=== PATIENT | female | born 1960 | race Caucasian/White ===

== ENCOUNTER → 2018-02-14 | Outpatient (CLI) | payer OTHER ==
[~2018-02-14] MED LIST: AUGMENTIN 875875 MG PO; CLONIDINE HCL0.2 MG PO; CREON DR 12,001 EACH PO; DIGOX250 MCG PO; DILTIAZEM 24HR180 MG PO; Diltiazem180 MG PO; EFFEXOR XR75 M1 PO; ELIQUIS5 M1 PO; FENOFIBRATE160 MG PO; GLUCOPHAGE1000 MG PO; IBU800 MG PO; KLOR-CON M2020 ME1 PO; LASIX40 MG PO; NEURONTIN600 MG PO; ONCE-DAILY WEL150 MG PO; PHENERGAN25 M3 PO; PRAVACHOL20 MG PO; PRILOSEC20 M1 PO; WELLBUTRIN XL150 MG PO
== END | disposition home or self-care (01) ==
LOC: RAD 15:40
DX: M25.551 Pain in right hip (principal); M25.552 Pain in left hip

== ENCOUNTER 2018-02-25 15:17 | Inpatient (IN) | payer OTHER ==
[~2018-02-25] VITALS: Ht 167.6 cm; Wt 131.5 kg
--- NOTE | ~2018-02-25 | DS ---
[place], [place] DISCHARGE SUMMARY NAME: NEIL CHAVIRA [facility] #: [id number] UNIT #: [id number] ROOM: 520 DOCTOR: MCKENZIE BAY MD BIRTHDATE: [birth year] DOS: 02/28/2018 DISCHARGE DIAGNOSES: 1. Cardiac stress test positive for anterior wall ischemia. The patient going for heart catheterization to [facility] in [place] with Dr. León. 2. Urinary tract infection with Escherichia coli extended-spectrum beta-lactamases, being treated with Augmentin. 3. Morbid obesity. 4. Gastroesophageal reflux disease and esophagitis. 5. Type 2 diabetes mellitus. 6. Chronic atrial fibrillation. The patient's apixaban held back for heart catheterization. 7. Bilateral hip pains and osteoarthritis. 9. Chronic obstructive pulmonary disease. 10. Mixed hyperlipidemia. 11. Major depression, recurrent. 12. Type 2 diabetes mellitus. Metformin held back for heart catheterization. HOSPITAL COURSE: The patient presented to the Emergency Department with: 1. Recurrent chest pressure, tightness symptoms and nausea and diaphoresis and substernal chest pain for about a week, which resolved with sublingual nitroglycerins. The patient was ruled out for acute UT with serial cardiac enzymes and then taken for a cardiac stress test, which showed significant anterior wall reversible ischemia. The patient has been scheduled to go to [facility] in [place] tomorrow for a heart catheterization for further evaluation and management. The patient's metformin and apixaban has been held back for the procedure and needs to be restarted. 2. The patient with urinary tract infection with ESBL being treated with Augmentin, which needs to be continued 875 mg twice a day to complete a week of treatment. 3. Bilateral hip pains for which the patient was requesting pain medications and she was started on hydrocodone p.r.n. 4. Benign essential hypertension, treated and controlled. The patient remains on Cardizem and clonidine. 5. Gastroesophageal reflux disease and esophagitis, asymptomatic with omeprazole, which was continued. 6. Type 2 diabetes mellitus. The patient on metformin, which has been held back for the heart catheterization. The patient remains on a no concentrated sweet diet. 7. Morbid obesity. The patient worked with [employer]. 8. Chronic atrial fibrillation with controlled heart rates. The patient remains off of apixaban for now, needs to be restarted later. LABORATORY DATA: Nuclear stress results as mentioned above. Echocardiogram showing normal left ventricular ejection fraction. Urine cultures growing E. coli ESBL producing organism, sensitive to Augmentin. Cardiac enzymes were negative. DISCHARGE MANAGEMENT: Metformin on hold, apixaban on hold, aspirin 81 mg a day, [place], [place] DISCHARGE SUMMARY NAME: [id number] UN[facility] #: [id number] ROOM: [facility] DOCTOR: MCKENZIE BAY MD BIRTHDATE: [birth year] metoprolol 25 mg b.i.d., Lipitor 40 mg a day, digoxin 250 mcg daily, venlafaxine 75 mg daily, furosemide 40 mg a day, clonidine 0.2 mg daily, bupropion XL 150 mg daily, pancreatic enzymes 12,000 units b.i.d. with meals, omeprazole 20 mg a day, gabapentin 600 mg every 8 hours, promethazine 25 mg daily as needed for nausea, vomiting. Augmentin 875 mg b.i.d. for 6 more days. MCKENZIE BAY MD CM:RUFINA 25 46 MCKENZIE BAY MD 02/28/[id number] interface
--- NOTE | ~2018-02-25 | EKG ---
[place], [place] ELECTROCARDIOGRAM REPORT NAME: NEIL CHAVIRA UNIT #: [id number] ROOM: 520 DOCTOR: HEATHER DRAFT REPORT BIRTHDATE: [address] [facility] Test Date: 2018-02-25 Test Time: 17:42:40 Pat Name: NEIL CHAVIRA Department: Room: 520 Gender: F Advanced Practice Registered Nurse: Cait Schofield : 1960 Requested By: ROMERO RILEY Order Number: [id number] Reading MD: Victoriano León MD Measurements Intervals [place] Rate: 82 P: 30 NC: 182 QRS: 7 QRSD: 94 T: -20 QT: 359 QTc: 420 Interpretive Statements Sinus rhythm Probable left atrial enlargement Probable left ventricular hypertrophy Borderline T abnormalities, diffuse leads Electronically Signed On 02-26-2018 16:08:05 PST by Victoriano León MD CM:EKGRPT:ELECTROCARDIOGRAM REPORT [id number] ROMERO URRUTIA DRAFT REPORT ROMERO RILEY DO
--- NOTE | ~2018-02-25 | PR ---
[place], [place] PROGRESS NOTE [id number] UNIT #: [id number] ROOM: 520 DOCTOR: MCKENZIE BAY MD BIRTHDATE: [birth year] DOS: 02/27/2018 SUBJECTIVE: The patient is feeling better. Had a stress test this morning and 1 more episode of chest pains, but negative cardiac enzymes. PHYSICAL EXAMINATION: GENERAL APPEARANCE: The patient is alert and oriented x 3, in no visible distress. Obesity. VITAL SIGNS: Blood pressure 118/74, heart rate 71 beats per minute, breathing 20 times per minute, temperature 98 degrees Fahrenheit. HEENT AND NECK: Exam within normal limits. CARDIOVASCULAR SYSTEM: Heart rate is regular in rate and rhythm. S1 and S2 normally audible. LUNGS: Clear to auscultation. ABDOMEN: Soft, nontender. No obvious organomegaly. Bowel sounds are present. EXTREMITIES: Without significant cyanosis or edema. IMPRESSION: 1. The patient's chest pains from uncertain etiology. The patient is undergoing cardiac stress testing today. 2. Urinary tract infection with Escherichia coli extended-spectrum beta-lactamase, to be treated with Augmentin. 3. Morbid obesity. The patient working with Dietary. 4. Gastroesophageal reflux disease and esophagitis, asymptomatic with omeprazole. 5. Type 2 diabetes mellitus, being treated with metformin. Blood sugars being monitored. 6. Chronic atrial fibrillation, heart rate is controlled and the patient anticoagulated with Xarelto. 7. Bilateral hip pains are being treated with hydrocodone. The patient already has been x-rayed by her PCP, Dr. Mendez Collins as an outpatient. MCKENZIE BAY MD CM:PNTRANS [id number] MCKENZIE BAY MD 02/27/18 2316 interface
--- NOTE | ~2018-02-25 | EKG ---
[place], [place] ELECTROCARDIOGRAM REPORT NAME: NEIL CHAVIRA UNIT #: [id number] ROOM: 520 DOCTOR: HEATHER DRAFT REPORT BIRTHDATE: [birth year] [facility] Test Date: 2018-02-25 Test Time: 21:03:20 Pat Name: NEIL CHAVIRA Department: Room: 520 Gender: F Golf Course Keeper: Ayden Villarreal : 1960 Requested By: ROMERO RILEY Order Number: [id number] Reading MD: Victoriano León MD Measurements Intervals [place] Rate: 77 P: 47 [place]: 186 QRS: 34 QRSD: 91 T: 18 QT: 362 QTc: 410 Interpretive Statements Sinus rhythm Probable left atrial enlargement Abnormal R-wave progression, late transition Borderline T abnormalities, anterior leads Electronically Signed On 02-26-2018 16:10:02 PST by Victoriano León MD CM:EKGRPT:ELECTROCARDIOGRAM REPORT 02 1610 ROMERO URRUTIA DRAFT REPORT ROMERO RILEY DO
--- NOTE | ~2018-02-25 | EKG ---
[place], [place] ELECTROCARDIOGRAM REPORT NAME: NEIL CHAVIRA UNIT #: [id number] ROOM: 520 DOCTOR: HEATHER DRAFT REPORT BIRTHDATE: [birth year] [facility] Test Date: 2018-02-25 Test Time: 15:18:13 Pat Name: NEIL CHAVIRA Department: Room: 520 Gender: F Development Analyst: Cait Schofield : 1960 Requested By: ROMERO RILEY Order Number: [id number] Reading MD: Victoriano León MD Measurements Intervals [place] Rate: 92 P: 44 [place]: 177 QRS: 21 QRSD: 86 T: -6 QT: 350 QTc: 433 Interpretive Statements Sinus rhythm Left atrial enlargement Borderline T wave abnormalities Electronically Signed On 02-26-2018 16:06:01 PST by Victoriano León MD CM:EKGRPT:ELECTROCARDIOGRAM REPORT [id number] 1606 ROMERO URRUTIA DRAFT REPORT ROMERO RILEY DO
--- NOTE | ~2018-02-25 | WRIGHTHP ---
[place], [place] PATIENT HISTORY AND PHYSICAL EXAM NAME: NEIL CHAVIRA [facility] #: [id number] UNIT #: [id number] ROOM: 520 DOCTOR: MCKENZIE BAY MD BIRTHDATE: [birth year] DOS: 02/25/2018 HISTORY OF PRESENT ILLNESS: The patient is a 58-year-old female with a past medical history of: 1. Morbid obesity. 2. Chronic atrial fibrillation. 3. COPD. 4. Benign essential hypertension. 5. Mixed hyperlipidemia. 6. Major depression, recurrent. 7. Type 2 diabetes mellitus. 8. GERD and esophagitis. The patient presented to the Emergency Department with recurrent chest pressure and tightness symptoms without nausea or diaphoresis. The patient also had substernal chest pain for about 1 week, resolved with nitroglycerin. The patient was sent over to the Emergency Department by her primary care physician, Dr. Mendez Collins. After admission, the patient had mild symptoms of chest pain this morning, which resolved, but she is complaining of significant pains bilaterally in her hips, which are being evaluated by Dr. Mendez Collins with an x-ray. The patient is requesting pain medication. REVIEW OF SYSTEMS: CARDIOVASCULAR SYSTEM: Recurrent chest pains. GASTROINTESTINAL: No nausea, vomiting, diarrhea, constipation. RESPIRATORY: No shortness of breath or wheezing. HOME MEDICATIONS: The patient on gabapentin, apixaban, omeprazole, metformin, bupropion, clonidine, diltiazem, furosemide, Effexor, digoxin, Lipitor. ALLERGIES: No known drug allergies, but allergic to LATEX. FAMILY HISTORY: Noncontributory. PHYSICAL EXAMINATION: GENERAL: Alert, oriented x 3, morbidly obese with BMI of 46.8. HEENT AND NECK: Extraocular movements are intact. Sclerae are anicteric. Oral mucosa is moist and clean. No obvious facial weakness. Neck is supple without any lymphadenopathy. No thyromegaly. No JVD. No carotid arterial bruits. LUNGS: Clear to auscultation. No wheezing. No rhonchi. CARDIOVASCULAR SYSTEM: Heart rate is regular in rate and rhythm. S1 and S2 normally audible. No significant murmur or any other abnormal cardiac sounds. ABDOMEN: Soft, nontender. No obvious organomegaly. Bowel sounds are present. No obvious herniation. EXTREMITIES: Without significant cyanosis or edema. Warm to touch. CENTRAL NERVOUS SYSTEM: Alert and oriented x 3. Cranial nerves II-XII are intact. Speech is normal. The patient is able to move all extremities. Normal muscle strength. Deep tendon reflexes are equal on both sides. Plantars were downgoing. [place], [place] PATIENT HISTORY AND PHYSICAL EXAM NAME: NEIL CHAVIRA UNIT #: [id number] ROOM: [facility] DOCTOR: MCKENZIE BAY MD BIRTHDATE: [birth year] LABORATORY DATA: Cardiac enzymes were negative. Urine culture is growing heavy gram-negative bacilli, 75,000 colonies. Normal serum electrolytes. Blood sugar 161. Chest x-ray without acute abnormality. Normal CBC. IMPRESSION AND PLAN: 1. The patient with chest pains from uncertain etiology b.i.d., but the patient is a high risk for coronary artery disease. The patient's cardiac enzymes have been negative and she has been scheduled for a cardiac stress test in the morning with the lawn caretaker. 2. Bilateral hip pains, which are bothering her significantly and I will give her hydrocodone 3 times a day as needed for pain control because Tylenol and Advil are not helping. 3. Benign essential hypertension. The patient continued on Cardizem and clonidine. Blood pressure is being monitored and is staying normal. 4. Gastroesophageal reflux disease and esophagitis, treated with omeprazole. The patient is without heartburns. 5. Type 2 diabetes mellitus. The patient is on metformin. Blood sugars are being monitored and she was kept on a no concentrated sweet diet. 6. Chronic atrial fibrillation with controlled heart rates. The patient remains on digoxin and anticoagulated with Xarelto. MCKENZIE BAY MD CM:HISPHYS:PATIENT HISTORY AND PHYSICAL EXAMINATION 22 46 MCKENZIE BAY MD 02/26/181947 interface
--- NOTE | ~2018-02-25 | PR ---
[place], [place] PROGRESS NOTE NAME: NEIL CHAVIRA UNIT #: [id number] ROOM: 520 DOCTOR: CHECO COOMBS,BETHELROMMEL BIRTHDATE: [birth year] DOS: 02/28/2018 REASON FOR VISIT: Chest pain, abnormal stress test. HISTORY OF PRESENT ILLNESS: The patient is feeling better. Denies any chest pain or shortness of breath. No palpitation, no dizziness, no PND, no orthopnea. REVIEW OF SYSTEMS: Review of the 10 systems negative except as mentioned above. RHYTHM STRIPS: The patient in sinus rhythm. PHYSICAL EXAMINATION: VITAL SIGNS: Blood pressure 122/68, pulse 78, respiratory rate was 20. Weight 131.4 kilos. BMI 46.8. GENERAL: Alert, comfortable, in no acute distress. HEAD AND NECK: Pupils round, equal. Tongue was moist and pharynx was clear. NECK: Supple, no distended neck veins, no carotid bruit. CHEST: Nontender. LUNGS: A few scattered rhonchi. Good air entry bilaterally. HEART: Regular rhythm, no S3, no palpable thrills. ABDOMEN: Morbidly obese, nontender. Bowel sounds normal. EXTREMITIES: Showed trace edema. Distal pulses palpable. SKIN: Warm and dry. No cyanosis, no clubbing. RECTAL: Deferred. GENITOURINARY: Deferred. MEDICATIONS, LABS AND ALLERGIES: Reviewed. IMPRESSION: 1. Chest pain, possible angina, myocardial infarction ruled out. 2. Abnormal stress test with inferior and anterior ____ ischemia. 3. Hypertension. 4. Diabetes type 2. 5. Paroxysmal atrial fibrillation. 6. History of cerebrovascular accident. 7. Morbid obesity. RECOMMENDATIONS: 1. She is currently pain free. 2. She was recommended cardiac catheterization due to recurrent chest pains, abnormal stress test and multiple coronary artery disease risk factors. Risks, benefits, and alternatives of cardiac catheterization discussed with the patient and agreed to proceed with cardiac catheterization, angioplasty stent and possible bypass surgery if needed. Had a cardiac catheterization indication of 17 with AUC score of 9. We will start aspirin 81 mg and hold her Eliquis for cardiac catheterization. Start beta chris ____ and discontinue her Cardizem. Continue her statins and Nitro-Patch. Hold her metformin for cardiac catheterization. [place], [place] PROGRESS NOTE NAME: NEIL CHAVIRA UNIT #: [id number] ROOM: 520 DOCTOR: CHECO COOMBS,JUDIE BIRTHDATE: [birth year] She will be transferred to [facility] in [place] ____ for cardiac catheterization and further recommendation based on cardiac catheterization. The patient has lost significant weight in the last few years and the patient encouraged to continue to lose weight. Resume her Eliquis after her cardiac catheterization. There is no family at bedside at the time of examination. JUDIE KESSLER MD CM:LUCIE [id number] JUDIE KESSLER MD 03/01/18 0256 interface
[2018-02-25 15:23] VITALS: BP 151/101
[2018-02-25 15:33] LABS: BASO # 0.1 10*3/uL (0.0-0.1); BASO % 0.7 % (0.0-1.0); EOS # 0.3 10*3/uL (0.0-0.4); EOS % 3.2 % (1.0-4.0); LYMPH # 1.8 10*3/uL (1.3-4.4); LYMPH % 21.8 % (27.0-41.0); MEAN CELL VOLUME 91.7 fl (81.0-99.0); MEAN CORPUSCULAR HGB 29.1 pg (27.0-31.0); MEAN CORPUSCULAR HGB CONC 31.7 g/dl (33.0-37.0); MEAN PLATELET VOLUME 10.2 fl (9.6-12.3); MONO # 0.5 10*3/uL (0.1-1.0); MONO % 6.3 % (3.0-9.0); NEUT # 5.5 10*3/uL (2.3-7.9); NEUT % 67.8 % (47.0-73.0); PLATELET COUNT AUTOMATED 273 10*3/uL (130-400); RED BLOOD COUNT 4.47 10*6/uL (4.10-5.10); RED CELL DISTRI WIDTH 13.1 % (0-14.5); WHITE BLOOD COUNT 8.1 10*3/uL (4.8-10.8)
[2018-02-25 15:42] LABS: ACT PARTIAL THROMBO TIME 25.5 SECONDS (20.8-31.5); INTERNATIONAL NORM RATIO 1.1 (2.0-3.5)
[2018-02-25 15:51] LABS: ALBUMIN 3.7 gm/dl (3.1-4.5); ALKALINE PHOSPHATASE 74 U/L (45-117); BUN 16 mg/dl (7-24); CHLORIDE 102 mmol/L (98-107); CREATININE 0.94 mg/dL (0.55-1.02); POTASSIUM 4.2 mmol/L (3.5-5.1); SGOT/AST 32 IU/L (3-35); SGPT/ALT 35 U/L (12-78); SODIUM 138 mmol/L (136-145); TOTAL PROTEIN 8.4 gm/dL (6.4-8.2)
[2018-02-25 15:54] LABS: TROPONIN I < 0.015 ng/ml (<0.045)
[2018-02-25 15:58] LABS: BILIRUBIN NEGATIVE (NEGATIVE); BLOOD NEGATIVE (NEGATIVE); CLARITY CLEAR (CLEAR); COLOR YELLOW (YELLOW); GLUCOSE NEGATIVE (NEGATIVE); KETONE NEGATIVE (NEGATIVE); LEUKO ESTERASE NEGATIVE (NEGATIVE); NITRITE NEGATIVE (NEGATIVE); PH 6.5 (5.0-9.0); SPECIFIC GRAVITY <= 1.005 (1.005-1.030); UROBILINOGEN 0.2 E.U./dl (0.2-1.0)
[2018-02-25 16:01] VITALS: BP 119/85
[2018-02-25 16:04] VITALS: BP 107/64
[2018-02-25 16:07] LABS: BACTERIA 2+; RBC 0-2 rbc/hpf (0-2)
[2018-02-25] MEDS ORDERED: ONCE-DAILY WEL150 MG PO (16:24)
[2018-02-25] MEDS ORDERED: PHENERGAN25 M3 PO (16:27)
[2018-02-25] MEDS ORDERED: IBU800 MG PO (16:28)
[2018-02-25] MEDS ORDERED: EFFEXOR XR75 M1 PO (16:29)
[2018-02-25] MEDS ORDERED: NEURONTIN600 MG PO (16:29)
[2018-02-25] MEDS ORDERED: DIGOX250 MCG PO (16:30)
[2018-02-25] MEDS ORDERED: LASIX40 MG PO (16:30)
[2018-02-25] MEDS ORDERED: GLUCOPHAGE1000 MG PO (16:31)
[2018-02-25] MEDS ORDERED: KLOR-CON M2020 ME1 PO (16:31)
[2018-02-25] MEDS ORDERED: PRILOSEC20 M1 PO (16:33)
[2018-02-25] MEDS ORDERED: Diltiazem180 MG PO (16:33)
[2018-02-25] MEDS ORDERED: ELIQUIS5 M1 PO (16:35)
[2018-02-25] MEDS ORDERED: WELLBUTRIN XL150 MG PO (16:36)
[2018-02-25] MEDS ORDERED: FENOFIBRATE160 MG PO (16:36)
[2018-02-25] MEDS ORDERED: DILTIAZEM 24HR180 MG PO (16:38)
[2018-02-25] MEDS ORDERED: CREON DR 12,001 EACH PO (16:39)
[2018-02-25] MEDS ORDERED: PRAVACHOL20 MG PO (16:39)
[2018-02-25] MEDS ORDERED: CLONIDINE HCL0.2 MG PO (16:42)
[2018-02-25 16:55] VITALS: BP 120/82
[2018-02-25 17:00] VITALS: BP 141/81
[2018-02-25 20:00] VITALS: BP 139/71
[2018-02-26] VITALS: BP 133/66
[2018-02-26 08:00] VITALS: BP 136/80
[2018-02-26 12:00] VITALS: BP 145/75
[2018-02-26 16:00] VITALS: BP 120/72
[2018-02-26 20:00] VITALS: BP 129/71
[2018-02-27] VITALS: BP 129/63; BP 145/82
[2018-02-27 08:00] VITALS: BP 118/74; BP 132/74
[2018-02-27 12:00] VITALS: BP 132/63
[2018-02-27 16:00] VITALS: BP 111/56
[2018-02-27 20:00] VITALS: BP 121/64
[2018-02-28] VITALS: BP 129/63
[2018-02-28 08:00] VITALS: BP 122/68
[2018-02-28 12:00] VITALS: BP 104/64
[2018-02-28 16:00] VITALS: BP 110/59
[2018-02-28] MEDS ORDERED: AUGMENTIN 875875 MG PO (17:15)
[2018-02-28 20:00] VITALS: BP 125/63
[2018-03-01] VITALS: BP 124/74
== END 2018-03-01 06:08 | disposition other institution (70) | DRG 690 ==
LOC: ED 15:17 → EDHOLD 16:19 → 5E 16:19
PROVIDERS: Emergency Medicine; Nurse Practitioner
PROC: 4A02XM4 Measurement of Cardiac Total Activity, External Approach (ICD-10-PCS; principal; 2018-02-27)
PROC: 3E073KZ Introduction of Other Diagnostic Substance into Coronary Artery, Percutaneous Approach (ICD-10-PCS; 2018-02-27)
DX: N39.0 Urinary tract infection, site not specified (principal); F33.9 Major depressive disorder, recurrent, unspecified; Z68.42 Body mass index [BMI] 45.0-49.9, adult; I20.9 Angina pectoris, unspecified; R07.9 Chest pain, unspecified; I10 Essential (primary) hypertension; E11.9 Type 2 diabetes mellitus without complications; I48.2 Chronic atrial fibrillation; Z79.01 Long term (current) use of anticoagulants; E78.5 Hyperlipidemia, unspecified; Z91.040 Latex allergy status; E66.01 Morbid (severe) obesity due to excess calories; J44.9 Chronic obstructive pulmonary disease, unspecified; E78.2 Mixed hyperlipidemia; K21.0 Gastro-esophageal reflux disease with esophagitis; Z79.84 Long term (current) use of oral hypoglycemic drugs; B96.20 Unspecified Escherichia coli [E. coli] as the cause of diseases classified elsewhere; M16.0 Bilateral primary osteoarthritis of hip; I25.9 Chronic ischemic heart disease, unspecified

== ENCOUNTER → 2018-03-28 | Outpatient (CLI) | payer OTHER | END | disposition home or self-care (01) | LOC: WOUNDCARE 12:11 | DX: E11.622 Type 2 diabetes mellitus with other skin ulcer (principal); L98.491 Non-pressure chronic ulcer of skin of other sites limited to breakdown of skin; E11.65 Type 2 diabetes mellitus with hyperglycemia; I48.91 Unspecified atrial fibrillation; E78.5 Hyperlipidemia, unspecified; K21.9 Gastro-esophageal reflux disease without esophagitis; M19.90 Unspecified osteoarthritis, unspecified site; E66.01 Morbid (severe) obesity due to excess calories; F32.9 Major depressive disorder, single episode, unspecified; Z68.41 Body mass index [BMI] 40.0-44.9, adult ==

== ENCOUNTER → 2018-06-06 | Outpatient (CLI) | payer OTHER ==
[~2018-06-06] MED LIST changes: +NORCO 5-325 TA1 EACH PO
== END | disposition home or self-care (01) ==
LOC: MAMMO 08:36
DX: Z12.31 Encounter for screening mammogram for malignant neoplasm of breast (principal); N83.291 Other ovarian cyst, right side

== ENCOUNTER → 2018-06-11 | Outpatient (CLI) | payer OTHER ==
[2018-06-11 17:20] LABS: ALBUMIN 3.9 gm/dl (3.1-4.5); BUN 21 mg/dl (7-24); CHLORIDE 105 mmol/L (98-107); CREATININE 0.98 mg/dL (0.55-1.02); POTASSIUM 4.5 mmol/L (3.5-5.1); SGOT/AST 23 IU/L (3-35); SGPT/ALT 29 U/L (12-78); SODIUM 138 mmol/L (136-145)
[2018-06-11 17:21] LABS: ALKALINE PHOSPHATASE 72 U/L (45-117)
== END | disposition home or self-care (01) ==
LOC: LAB 16:32
PROVIDERS: Internal Medicine Cardiovascular Disease
DX: E11.9 Type 2 diabetes mellitus without complications (principal)

== ENCOUNTER 2018-08-13 13:42 | Emergency (ER) | payer OTHER ==
[~2018-08-13] VITALS: Ht 160 cm; Wt 127.9 kg
[~2018-08-13 13:42] MED LIST changes: -NORCO 5-325 TA1 EACH PO
[2018-08-13 14:30] LABS: BILIRUBIN NEGATIVE (NEGATIVE); BLOOD NEGATIVE (NEGATIVE); CLARITY SL CLOUDY (CLEAR); COLOR YELLOW (YELLOW); GLUCOSE 3+ (NEGATIVE); KETONE NEGATIVE (NEGATIVE); LEUKO ESTERASE NEGATIVE (NEGATIVE); NITRITE NEGATIVE (NEGATIVE); PH 5.5 (5.0-9.0); UROBILINOGEN 0.2 E.U./dl (0.2-1.0)
[2018-08-13 14:42] LABS: BACTERIA 1+
[2018-08-13] MEDS ORDERED: NORCO 5-325 TA1 EACH PO (17:31)
== END 2018-08-13 17:47 | disposition home or self-care (01) ==
LOC: ED 13:42
PROVIDERS: Physician Assistant
DX: M54.5 Low back pain (principal); Z79.899 Other long term (current) drug therapy; Z91.040 Latex allergy status; X58.XXXA Exposure to other specified factors, initial encounter; Y93.01 Activity, walking, marching and hiking; Y92.89 Other specified places as the place of occurrence of the external cause; Y99.8 Other external cause status

== ENCOUNTER → 2018-09-26 | Outpatient (CLI) | payer OTHER ==
[~2018-09-26] MED LIST changes: +NORCO 5-325 TA1 EACH PO; +VISTARIL25 MG PO
== END | disposition home or self-care (01) ==
LOC: US 09-09 10:00
DX: N83.201 Unspecified ovarian cyst, right side (principal)

== ENCOUNTER → 2018-10-29 | Outpatient (CLI) | payer OTHER | END | disposition home or self-care (01) | LOC: US 13:29 | DX: N83.201 Unspecified ovarian cyst, right side (principal) ==

== ENCOUNTER 2018-11-18 20:28 | Emergency (ER) | payer MEDICARE, MEDICAID ==
[~2018-11-18] VITALS: Ht 165.1 cm; Wt 127.0 kg
[~2018-11-18 20:28] MED LIST changes: -VISTARIL25 MG PO
[2018-11-29] MEDS ORDERED: VISTARIL25 MG PO (15:51)
== END 2018-11-18 23:10 | disposition home or self-care (01) ==
LOC: ED 20:28
DX: M79.605 Pain in left leg (principal); M54.5 Low back pain; Z91.040 Latex allergy status; Z79.899 Other long term (current) drug therapy; W10.8XXA Fall (on) (from) other stairs and steps, initial encounter; Y93.89 Activity, other specified; Y92.89 Other specified places as the place of occurrence of the external cause; Y99.8 Other external cause status

== ENCOUNTER → 2018-12-17 | Outpatient (CLI) | payer MEDICARE, MEDICAID ==
[~2018-12-17] MED LIST changes: +VISTARIL25 MG PO
== END | disposition home or self-care (01) ==
LOC: ORTHO 02:39
DX: M47.816 Spondylosis without myelopathy or radiculopathy, lumbar region (principal)

== ENCOUNTER → 2019-02-24 | Outpatient (CLI) | payer MEDICARE, MEDICAID ==
[2019-02-24 11:05] LABS: HEMATOCRIT 43.3 % (37.0-47.0); HEMOGLOBIN 13.4 g/dl (12.0-16.0); MEAN CELL VOLUME 92.3 fl (81.0-99.0); MEAN CORPUSCULAR HGB 28.6 pg (27.0-31.0); MEAN CORPUSCULAR HGB CONC 30.9 g/dl (33.0-37.0); MEAN PLATELET VOLUME 10.3 fl (9.6-12.3); RED BLOOD COUNT 4.69 10*6/uL (4.10-5.10); RED CELL DISTRI WIDTH 13.8 % (0-14.5)
[2019-02-24 12:03] LABS: ALBUMIN 3.6 gm/dl (3.1-4.5); CREATININE 1.32 mg/dL (0.55-1.02); TOTAL PROTEIN 8.1 gm/dL (6.4-8.2)
== END | disposition home or self-care (01) ==
LOC: LAB 10:37
PROVIDERS: Family Medicine
DX: E11.9 Type 2 diabetes mellitus without complications (principal); E78.00 Pure hypercholesterolemia, unspecified; I10 Essential (primary) hypertension; E66.9 Obesity, unspecified; M25.50 Pain in unspecified joint; E55.9 Vitamin D deficiency, unspecified

== ENCOUNTER → 2019-03-07 | Outpatient (CLI) | payer MEDICARE, MEDICAID | END | disposition home or self-care (01) | LOC: CT 11:00 | DX: R41.3 Other amnesia (principal); R51 Headache ==

== ENCOUNTER → 2019-06-03 | Outpatient (CLI) | payer MEDICARE, MEDICAID | END | disposition home or self-care (01) | LOC: US 09:47 | DX: K76.0 Fatty (change of) liver, not elsewhere classified (principal) ==

== ENCOUNTER → 2019-06-13 | Outpatient (CLI) | payer MEDICARE, MEDICAID | END | disposition home or self-care (01) | LOC: ORTHO 00:36 | DX: M17.0 Bilateral primary osteoarthritis of knee (principal); M79.669 Pain in unspecified lower leg; R06.02 Shortness of breath ==

== ENCOUNTER → 2019-06-18 | Outpatient (CLI) | payer MEDICARE, MEDICAID | END | disposition home or self-care (01) | LOC: CT 10:16 | DX: K76.9 Liver disease, unspecified (principal); M43.16 Spondylolisthesis, lumbar region; M48.05 Spinal stenosis, thoracolumbar region; Q45.3 Other congenital malformations of pancreas and pancreatic duct ==

== ENCOUNTER 2019-09-05 20:09 | Inpatient (IN) | payer MEDICARE, MEDICAID ==
[~2019-09-05] VITALS: Ht 165.1 cm; Wt 117.1 kg
[2019-09-05 20:17] VITALS: BP 159/77
[2019-09-05 20:34] LABS: BASO # 0.1 10*3/uL (0.0-0.1); BASO % 0.5 % (0.0-1.0); EOS # 0.2 10*3/uL (0.0-0.4); EOS % 2.5 % (1.0-4.0); HEMATOCRIT 37.3 % (37.0-47.0); LYMPH # 2.5 10*3/uL (1.3-4.4); LYMPH % 26.2 % (27.0-41.0); MEAN CELL VOLUME 93.5 fl (81.0-99.0); MEAN CORPUSCULAR HGB 29.6 pg (27.0-31.0); MEAN CORPUSCULAR HGB CONC 31.6 g/dl (33.0-37.0); MEAN PLATELET VOLUME 10.4 fl (9.6-12.3); MONO # 0.7 10*3/uL (0.1-1.0); MONO % 7.4 % (3.0-9.0); NEUT % 63.1 % (47.0-73.0); PLATELET COUNT AUTOMATED 260 10*3/uL (130-400); RED BLOOD COUNT 3.99 10*6/uL (4.10-5.10); RED CELL DISTRI WIDTH 13.4 % (0-14.5); WHITE BLOOD COUNT 9.5 10*3/uL (4.8-10.8)
[2019-09-05 20:45] LABS: ACT PARTIAL THROMBO TIME 28.5 SECONDS (20.0-32.1); INTERNATIONAL NORM RATIO 1.1 (2.0-3.5)
[2019-09-05 20:51] LABS: ALBUMIN 3.7 gm/dl (3.1-4.5); ALKALINE PHOSPHATASE 90 U/L (45-117); BUN 21 mg/dl (7-24); CHLORIDE 103 mmol/L (98-107); CREATININE 1.07 mg/dL (0.55-1.02); POTASSIUM 4.1 mmol/L (3.5-5.1); SGOT/AST 19 IU/L (3-35); SGPT/ALT 30 U/L (12-78); SODIUM 138 mmol/L (136-145); TOTAL PROTEIN 7.2 gm/dL (6.4-8.2)
[2019-09-05 20:52] LABS: TROPONIN I < 0.015 ng/ml (<0.045)
--- NOTE | 2019-09-05 21:11 | NUR ---
AT BEDSIDE WITH THIS RN. PATIENT STATES THAT FIRST NITRO GAVE HER SOME RELIEF BUT THAT SHE STILL C/O OF PAIN TO LEFT SIDE. 2ND NITRO TAB GIVEN AT THIS TIME.
--- NOTE | 2019-09-05 21:21 | NUR ---
PATIENT CHEST PAIN TO MIDSTERNAL CHEST HAS SUBSIDED, STATES MINIMAL PAIN TO LEFT SIDE CONTIUES. MADE AWAY
--- NOTE | 2019-09-05 22:47 | NUR ---
PT MEDICATED PER EMAR WITH IVP ZOFRAN FOR FEELING OF NAUSEA.
[2019-09-05 23:06] VITALS: BP 131/66
--- NOTE | 2019-09-05 23:06 | NUR ---
A 59, admitted to , under the services of Dr. SHANIQUE COOMBS,MCKENZIE Levin with a diagnosis of . Chief complaint is CHEST PAIN. Patient arrived via bed from ER. Monitor applied. Initial assessment completed. Vital signs taken and recorded. DR. SHANIQUE COOMBS,MCKENZIE Levin notified of admission to the unit. Orders received. See assessment for past medical history, medications and allergies. Patient and/or family oriented to unit. [facility] visitation policy reviewed. Clothing/patient valuable form completed. ALFREDITO CHAVIRA
[2019-09-05] MEDS ORDERED: BUSPAR5 MG PO (23:15)
[2019-09-05] MEDS ORDERED: CLARITIN10 MG PO (23:21)
[2019-09-05] MEDS ORDERED: ISOSORBIDE DINI30 MG PO (23:24)
[2019-09-05] MEDS ORDERED: LIPITOR40 MG PO (23:27)
[2019-09-05] MEDS ORDERED: MOBIC15 MG PO (23:32)
[2019-09-05] MEDS ORDERED: AMARYL4 MG PO (23:32)
[2019-09-05] MEDS ORDERED: VENT7GM INH (23:34)
[2019-09-05] MEDS ORDERED: LANTUS SOL100 UNIT/1 SQ (23:35)
--- NOTE | 2019-09-06 02:53 | NUR ---
MORPHINE EFFECTIVE, PATIENT RESTING COMFORTABLE ASLEEP IN ROOM.
--- NOTE | 2019-09-06 05:40 | NUR ---
MORPHINE 2MG GIVEN FOR PAIN RATED A 7 OUT OF 10
--- NOTE | 2019-09-06 06:21 | NUR ---
MORPHINE 2MG EFFECTIVE, PATIENT SLEEPING COMFORTABLY IN ROOM,
--- NOTE | 2019-09-06 06:32 | NUR ---
SPOKE TO ANSWERING SERVICE REGARDING CONSULTATION, AWAITING CALL BACK.
[2019-09-06 08:00] VITALS: BP 130/62
--- NOTE | 2019-09-06 08:00 | NUR ---
0800AM ASSESSMENT COMPLETE. PT RESTING IN BED. DENIES C/O AT PRESENT. BED IN LOW LOCKED POSITION. CALL LIGHT IN REACH. WILL MONITOR.
--- NOTE | 2019-09-06 09:19 | NUR ---
TOPHER in to talk to patient. Patient states lives at home with daughter and son-in-law. There are numerous steps in the home. Physician: Dr Walker Pharmacy: [facility] Home health services: no Patient's level of ADLs: MINIMAL ASSIST Patient has working utilities: yes DME: wheeled walker and cane Follow-up physician's appointment after d/c: Daughter will schedule Does patient want to access PORTAL?: no Discharge plan Patient states that her daughter assists pt as needed. Pt reports that she resides in a 2 story home and has many steps. Pt reports that she did have home health services previously but is unsure of the agency. Anticipate pt discharging home with assistance from daughter. Pt should not have further discharge needs. AUGUSTINE QUIJANO
--- NOTE | 2019-09-06 11:31 | NUR ---
IV MORPHINE GIVEN PER REQUEST FOR C/O ABDM. PAIN. RATES 7/10 ON PAIN SCALE. WILL MONITOR.
[2019-09-06 12:00] VITALS: BP 135/68
--- NOTE | 2019-09-06 17:07 | NUR ---
MORPHINE GIVEN FOR C/O ABDM. PAIN. WILL MONITOR.
[2019-09-06 18:00] VITALS: BP 115/48
--- NOTE | 2019-09-06 18:10 | NUR ---
MORPHINE EFFECTIVE PER PT.
[2019-09-06 20:00] VITALS: BP 112/60
--- NOTE | 2019-09-06 20:00 | NUR ---
MORPHINE 2 MG GIVEN FOR PAIN RATED A 7 OUT OF 10 TO LEFT CHEST AND LUQ ZOFRAN 4MG GIVEN FOR NAUSEA.
--- NOTE | 2019-09-06 20:48 | NUR ---
ZOFRAN PROVIDED PATIENT WITH PARTIAL RELIEF OF NAUSEA, MORPHINE DECREASED PAIN LEVEL FROM A 7 TO A 3.
[2019-09-07] VITALS: BP 124/66
--- NOTE | 2019-09-07 01:11 | NUR ---
CARDIAC STRIP 84 TX 0.20 QR 0.08 QT 0.32 NSR
--- NOTE | 2019-09-07 05:20 | NUR ---
MORPHINE GIVEN FOR PAIN RATED A 7 OUT OF 10 TO THE LEFT CHEST AND LUQ. ZOFRAN GIVEN FOR NAUSEA.
--- NOTE | 2019-09-07 06:00 | NUR ---
MORPHINE AND ZOFRAN EFFECTIVE PATIENT SLEEPING IN ROOM
--- NOTE | 2019-09-07 07:30 | NUR ---
IN PT ROOM TO COMPLETE ASSESSMENT, PT COMPLAINS OF CHEST PAIN THAT IS LOCATED MIDSTERNAL AND RADIATES TO THE LEFT SHOULDER. SHE NOTES THAT THE PAIN HAS DECREASED SINCE BEING IN THE HOSPITAL. CALL LIGHT WITHIN REACH, WILL CONTINUE TO MONITOR
[2019-09-07 08:00] VITALS: BP 124/68
--- NOTE | 2019-09-07 10:52 | NUR ---
PRN ZOFRAN IV GIVEN FOR UPSET STOMACH, PRN MORPHINE IV GIVEN FOR LEFT SIDED PAIN RATING A 6/10. WILL MONITOR FOR EFFECTIVENESS
--- NOTE | 2019-09-07 11:19 | NUR ---
PT STATES MEDICATIONS WERE EFFECTIVE, WILL CONTINUE TO MONITOR
--- NOTE | 2019-09-07 11:32 | NUR ---
Shift chart check completed.
[2019-09-07 12:00] VITALS: BP 118/64
--- NOTE | 2019-09-07 14:20 | NUR ---
DR BAY IN TO SEE THE PATIENT
[2019-09-07 16:00] VITALS: BP 108/52
--- NOTE | 2019-09-07 16:30 | NUR ---
PT RESTING IN BED. NO DISTRESS NOTED. NO VOICED C/O. WILL MONITOR
[2019-09-07 20:00] VITALS: BP 132/57; BP 99/69
--- NOTE | 2019-09-07 20:30 | NUR ---
RESTING IN BED WATCHING TV WITH NO DISTRESS NOTED. RESPIRATIONS EASY. LUNGS DIMINISHED, CLEAR. PULSE OX 100% RA. TRACE BLE EDEMA. CALL LIGHT WITHIN REACH. NO VOICED COMPLAINTS.
--- NOTE | 2019-09-07 20:44 | NUR ---
24 HR chart check completed.
--- NOTE | 2019-09-07 22:17 | NUR ---
SITTING UP IN BED, NO ACUTE DISTRESS NOTED. RESPIRATIONS EASY. VSS. REQUESTED AND RECEIVED ZOFRAN AND MORPHINE PER PRN ORDER FOR COMPLAINTS OF NAUSEA AND MIDTSERNAL CHEST PAIN RATING AN 8 RADIATING DOWN LEFT SIDE. CALL LIGHT WITHIN REACH. NO VOICED COMPLAINTS
--- NOTE | 2019-09-07 22:41 | NUR ---
C/O NO BM X 3 DAYS. PATIENT PREFERS MAG CITRATE, ADMINISTERED PER ORDER
--- NOTE | 2019-09-07 23:00 | NUR ---
STATES EARLIER MEDS EFFECTIVE. SITTING UP IN BED, EATING ICE AND DRINKING SARAH ALL. NPO STATUS DISCUSSED FOR TESTING. CALL LIGHT WITHIN REACH. NO FURTHER VOICED COMPLAINTS
[2019-09-08] VITALS: BP 127/66
--- NOTE | 2019-09-08 | NUR ---
REMAINS AWAKE. RESPIRATIONS EASY. VSS. CALL LIGHT WITHIN REACH
[2019-09-08] MEDS ORDERED: CARVEDILOL6.25 MG PO (00:59)
--- NOTE | 2019-09-08 05:30 | NUR ---
MAG CITRATE EFFECTIVE FOR LARGE BM
--- NOTE | 2019-09-08 06:00 | NUR ---
SLEPT THROUGHOUT NIGHT WITH NO DISTRESS NOTED. RESPIRATIONS EASY. CALL LIGHT WITHIN REACH. NO VOICED COMPLAINTS THIS SHIFT. REMAINS NPO FOR TESTING
--- NOTE | 2019-09-08 07:36 | NUR ---
pt resting in bed. no distress noted. will monitor
[2019-09-08 08:00] VITALS: BP 130/62
--- NOTE | 2019-09-08 09:00 | NUR ---
[employer] Shop Floorperson in to see patient. Discussed home health care services and she is agreeable. When provided with a list of agencies she chose [facility]. When medically stable she will be discharged to home with [facility] services.
--- NOTE | 2019-09-08 11:30 | NUR ---
PT TO CARDIAC REHAB VIA WHEELCHAIR
--- NOTE | 2019-09-08 11:35 | NUR ---
PT. UNAVAILABLE CURRENTLY OFF FLOOR FOR STRESS TEST.
--- NOTE | 2019-09-08 12:20 | NUR ---
INFORMED CONSENT OBTAINED FOR LEXISCAN NUCLEAR STRESS TEST WITH DR. BAY. RESTING EKG NSR WITH A RESTING HR OF 69 WITH BP 128/72. LUNGS DIMINISHED BS WITH SPO2 OF 96% ON ROOM AIR. PT COMPLETED A 1:00 LEXISCAN PROTOCOL RECEIVING LEXISCAN 0.4 MG IV OVER 10 SECONDS. HAD NO CHEST PAIN OR ANY EKG CHANGES. DID C/O "HEAD FEELS FUNNY" THAT WAS RELIEVED IN RECOVERY. HAD A PEAK HR OF 92 WITH BP OF 114/62. LAST RECOVERY HR OF 84 WITH BP OF 124/70. AWAITING SCANNING IN STABLE CONDITION.
[2019-09-08] MEDS ORDERED: ONDANSETRON4 MG/2 M3 IV (13:14)
[2019-09-08] MEDS ORDERED: ONDANSETRON ODT8 MG PO (13:14)
--- NOTE | 2019-09-08 14:56 | NUR ---
Discharge instructions reviewed with patient/family. Patient receptive and verbalizes understanding. Follow-up care arranged. Written instructions given to patient/family. RUPERT WISDOM
--- NOTE | 2019-09-09 07:14 | NUR ---
Faxed home health referral to [facility]
== END 2019-09-08 14:56 | disposition home or self-care (01) | DRG 303 ==
LOC: ED 20:09 → 5E 22:11 → EDHOLD 22:11 → 5E 22:42
PROVIDERS: Emergency Medicine; ADMIT Internal Medicine
PROC: 3E073KZ Introduction of Other Diagnostic Substance into Coronary Artery, Percutaneous Approach (ICD-10-PCS; principal; 2019-09-08)
PROC: 4A02XM4 Measurement of Cardiac Total Activity, External Approach (ICD-10-PCS; principal; 2019-09-08)
DX: I25.119 Atherosclerotic heart disease of native coronary artery with unspecified angina pectoris (principal); F33.1 Major depressive disorder, recurrent, moderate; Z68.41 Body mass index [BMI] 40.0-44.9, adult; I10 Essential (primary) hypertension; E66.01 Morbid (severe) obesity due to excess calories; F41.1 Generalized anxiety disorder; M54.9 Dorsalgia, unspecified; I48.0 Paroxysmal atrial fibrillation; M79.605 Pain in left leg; M16.0 Bilateral primary osteoarthritis of hip; J44.9 Chronic obstructive pulmonary disease, unspecified; E78.2 Mixed hyperlipidemia; K21.0 Gastro-esophageal reflux disease with esophagitis; E11.40 Type 2 diabetes mellitus with diabetic neuropathy, unspecified; M10.9 Gout, unspecified; Z91.040 Latex allergy status; Z82.49 Family history of ischemic heart disease and other diseases of the circulatory system; Z79.899 Other long term (current) drug therapy; Z79.4 Long term (current) use of insulin

== ENCOUNTER 2019-10-18 22:35 | Emergency (ER) | payer MEDICARE, MEDICAID ==
[~2019-10-18 22:35] MED LIST changes: +AMARYL4 MG PO; +BUSPAR5 MG PO; +CARVEDILOL6.25 MG PO; +CLARITIN10 MG PO; +ISOSORBIDE DINI30 MG PO; +LANTUS SOL100 UNIT/1 SQ; +LIPITOR40 MG PO; +MOBIC15 MG PO; +ONDANSETRON ODT8 MG PO; +ONDANSETRON4 MG/2 M3 IV; +VENT7GM INH
[2019-10-19] MEDS ORDERED: TYLENOL325 M1 PO (00:06)
[2019-10-19] MEDS ORDERED: KEFLEX500 M1 PO (00:06)
== END 2019-10-19 00:20 | disposition home or self-care (01) ==
LOC: ED 22:35
DX: S61.215A Laceration without foreign body of left ring finger without damage to nail, initial encounter (principal); I10 Essential (primary) hypertension; F32.9 Major depressive disorder, single episode, unspecified; E11.9 Type 2 diabetes mellitus without complications; J44.9 Chronic obstructive pulmonary disease, unspecified; I48.91 Unspecified atrial fibrillation; Z91.040 Latex allergy status; Z79.899 Other long term (current) drug therapy; Z79.4 Long term (current) use of insulin; X58.XXXA Exposure to other specified factors, initial encounter; Y93.89 Activity, other specified; Y92.89 Other specified places as the place of occurrence of the external cause; Y99.8 Other external cause status

== ENCOUNTER → 2019-12-18 | Outpatient (CLI) | payer MEDICARE, MEDICAID ==
[~2019-12-18] MED LIST changes: +KEFLEX500 M1 PO; +TYLENOL325 M1 PO
[2019-12-18 09:35] LABS: HEMATOCRIT 40.7 % (37.0-47.0); MEAN CELL VOLUME 93.3 fl (81.0-99.0); MEAN CORPUSCULAR HGB 29.1 pg (27.0-31.0); MEAN CORPUSCULAR HGB CONC 31.2 g/dl (33.0-37.0); MEAN PLATELET VOLUME 10.3 fl (9.6-12.3); RED BLOOD COUNT 4.36 10*6/uL (4.10-5.10); RED CELL DISTRI WIDTH 13.5 % (0-14.5); WHITE BLOOD COUNT 9.9 10*3/uL (4.8-10.8)
[2019-12-18 09:59] LABS: ALBUMIN 3.9 gm/dl (3.1-4.5); CREATININE 1.26 mg/dL (0.55-1.02); FREE T4 0.93 ng/dl (0.76-1.46); POTASSIUM 4.9 mmol/L (3.5-5.1)
[2019-12-18 10:04] LABS: THYROID STIM HORMONE (HS) 3.45 uIU/ml (0.358-4.75)
== END | disposition home or self-care (01) ==
LOC: LAB 09:06
PROVIDERS: ATTEND Family Medicine
DX: K21.9 Gastro-esophageal reflux disease without esophagitis (principal); R53.83 Other fatigue; E78.00 Pure hypercholesterolemia, unspecified; E11.9 Type 2 diabetes mellitus without complications; E55.9 Vitamin D deficiency, unspecified

== ENCOUNTER → 2019-12-29 | Outpatient (CLI) | payer MEDICARE, MEDICAID | END | disposition home or self-care (01) | LOC: CT 08:45 | PROVIDERS: ATTEND Psychiatry & Neurology Psychiatry | DX: M17.12 Unilateral primary osteoarthritis, left knee (principal); M25.462 Effusion, left knee; M25.762 Osteophyte, left knee; M71.22 Synovial cyst of popliteal space [Baker], left knee ==

== ENCOUNTER → 2020-01-20 | Outpatient (CLI) | payer MEDICARE, MEDICAID ==
[2020-01-20 11:10] LABS: HEMATOCRIT 40.2 % (37.0-47.0); MEAN CELL VOLUME 92.4 fl (81.0-99.0); MEAN CORPUSCULAR HGB 28.3 pg (27.0-31.0); MEAN CORPUSCULAR HGB CONC 30.6 g/dl (33.0-37.0); MEAN PLATELET VOLUME 10.4 fl (9.6-12.3); RED BLOOD COUNT 4.35 10*6/uL (4.10-5.10); RED CELL DISTRI WIDTH 13.3 % (0-14.5); WHITE BLOOD COUNT 9.8 10*3/uL (4.8-10.8)
[2020-01-20 11:54] LABS: ALBUMIN 3.8 gm/dl (3.1-4.5); CHLORIDE 107 mmol/L (98-107); CPK 247 U/L (26-192); CREATININE 0.81 mg/dL (0.55-1.02); SGOT/AST 18 IU/L (3-35); SGPT/ALT 25 U/L (12-78); SODIUM 141 mmol/L (136-145)
[2020-01-20 13:01] LABS: ALKALINE PHOSPHATASE 82 U/L (45-117); BUN 21 mg/dl (7-24); CHOLESTEROL 166 mg/dL (<200); DIGOXIN 1.01 ng/ml (0.8-2.0); HDL CHOLESTEROL 46 mg/dl (40-60); LDL CHOLESTEROL 85 mg/dL (9-159); TOTAL PROTEIN 7.9 gm/dL (6.4-8.2); TRIGLYCERIDES 174 mg/dl (<150); VLDL CHOLESTEROL 35 mg/dL (6-40)
== END | disposition home or self-care (01) ==
LOC: LAB 10:23
PROVIDERS: ATTEND Family Medicine
DX: I50.9 Heart failure, unspecified (principal); E78.00 Pure hypercholesterolemia, unspecified; E55.9 Vitamin D deficiency, unspecified; R53.83 Other fatigue; K21.9 Gastro-esophageal reflux disease without esophagitis; R60.0 Localized edema

== ENCOUNTER → 2020-02-12 | Outpatient (CLI) | payer MEDICARE, MEDICAID ==
[~2020-02-12] MED LIST changes: +ASPIRIN ADULT L81 M1 PO; +EFFEXOR XR150 M1 PO; -EFFEXOR XR75 M1 PO; -GLUCOPHAGE1000 MG PO; +GLUCOPHAGE500 M1 PO; +HYDROCODONE-AC1 EAC1 PO; +OMEPRAZOLE40 MG PO; -PRILOSEC20 M1 PO; +STOOL SOFTENER100 M3 PO; +VITAMIN D3125 MC1 PO; +WELLBUTRIN SR150 MG PO; -WELLBUTRIN XL150 MG PO
[2020-02-12 14:05] LABS: BILIRUBIN Negative (Negative); BLOOD Negative (Negative); CLARITY Clear (Clear); COLOR Yellow (Yellow); GLUCOSE Negative (Negative); KETONE Trace (Negative); LEUKO ESTERASE Trace (Negative); NITRITE Negative (Negative); PH 6.5 (4.5-8.0); SPECIFIC GRAVITY 1.025 (1.001-1.030)
[2020-02-12 14:13] LABS: BACTERIA TRACE; EPITHELIAL CELLS 0-2
== END | disposition home or self-care (01) ==
LOC: COVID19 01-01 11:30 → LAB 00:18 → COVID19 12:45
PROVIDERS: ATTEND Orthopaedic Surgery
DX: Z01.812 Encounter for preprocedural laboratory examination (principal); M17.12 Unilateral primary osteoarthritis, left knee; Z20.828 Contact with and (suspected) exposure to other viral communicable diseases

== ENCOUNTER 2020-02-17 02:25 | Observation (INO) | payer MEDICARE, MEDICAID ==
[2020-02-12 12:43] VITALS: BP 118/68
[2020-02-17] VITALS (8 sets, daily range): BP systolic 118–171; BP diastolic 64–93
[~2020-02-17] VITALS: Ht 160 cm; Wt 128.8 kg
[~2020-02-17 02:25] MED LIST changes: -HYDROCODONE-AC1 EAC1 PO
[2020-02-17 17:26] LABS: ALBUMIN 3.5 gm/dl (3.1-4.5); ALKALINE PHOSPHATASE 75 U/L (45-117); BUN 16 mg/dl (7-24); CHLORIDE 108 mmol/L (98-107); CREATININE 0.74 mg/dL (0.55-1.02); POTASSIUM 4.1 mmol/L (3.5-5.1); SGOT/AST 20 IU/L (3-35); SGPT/ALT 24 U/L (12-78); SODIUM 143 mmol/L (136-145); TOTAL PROTEIN 7.5 gm/dL (6.4-8.2)
[2020-02-17 17:43] LABS: DIGOXIN 1.24 ng/ml (0.8-2.0)
[2020-02-18] VITALS: BP 151/82
[2020-02-18 06:17] LABS: BASO % 0.2 % (0.0-1.0); HEMATOCRIT 34.7 % (37.0-47.0); LYMPH # 1.8 10*3/uL (1.3-4.4); MEAN CELL VOLUME 93.5 fl (81.0-99.0); MEAN CORPUSCULAR HGB 28.6 pg (27.0-31.0); MEAN CORPUSCULAR HGB CONC 30.5 g/dl (33.0-37.0); MEAN PLATELET VOLUME 10.3 fl (9.6-12.3); MONO # 1.3 10*3/uL (0.1-1.0); MONO % 10.2 % (3.0-9.0); NEUT # 9.8 10*3/uL (2.3-7.9); NEUT % 75.2 % (47.0-73.0); PLATELET COUNT AUTOMATED 269 10*3/uL (130-400); RED BLOOD COUNT 3.71 10*6/uL (4.10-5.10); RED CELL DISTRI WIDTH 13.9 % (0-14.5)
[2020-02-18 06:34] LABS: BUN 15 mg/dl (7-24); CHLORIDE 110 mmol/L (98-107); CREATININE 0.74 mg/dL (0.55-1.02); POTASSIUM 3.5 mmol/L (3.5-5.1); SODIUM 145 mmol/L (136-145)
[2020-02-18 06:36] LABS: ALBUMIN 3.3 gm/dl (3.1-4.5); BUN 16 mg/dl (7-24); CHLORIDE 109 mmol/L (98-107); CREATININE 0.74 mg/dL (0.55-1.02); POTASSIUM 3.5 mmol/L (3.5-5.1); SGOT/AST 21 IU/L (3-35); SGPT/ALT 21 U/L (12-78); SODIUM 144 mmol/L (136-145)
[2020-02-18 06:38] LABS: ALKALINE PHOSPHATASE 66 U/L (45-117); TOTAL PROTEIN 6.9 gm/dL (6.4-8.2)
[2020-02-18 08:00] VITALS: BP 143/82
[2020-02-18 16:00] VITALS: BP 122/59
[2020-02-19] VITALS: BP 140/63
[2020-02-19 06:34] LABS: HEMATOCRIT 35.2 % (37.0-47.0); MEAN CELL VOLUME 94.1 fl (81.0-99.0); MEAN CORPUSCULAR HGB 28.9 pg (27.0-31.0); MEAN CORPUSCULAR HGB CONC 30.7 g/dl (33.0-37.0); MEAN PLATELET VOLUME 10.4 fl (9.6-12.3); PLATELET COUNT AUTOMATED 244 10*3/uL (130-400); RED BLOOD COUNT 3.74 10*6/uL (4.10-5.10); RED CELL DISTRI WIDTH 13.9 % (0-14.5); WHITE BLOOD COUNT 11.8 10*3/uL (4.8-10.8)
[2020-02-19 06:55] LABS: BUN 15 mg/dl (7-24); CHLORIDE 105 mmol/L (98-107); CREATININE 0.76 mg/dL (0.55-1.02); POTASSIUM 4.1 mmol/L (3.5-5.1); SODIUM 141 mmol/L (136-145)
[2020-02-19 07:11] LABS: PLATELET SUFFICIENCY NORMAL (NORMAL); TOTAL CELLS COUNTED 100 #CELLS
[2020-02-19 08:00] VITALS: BP 113/68
[2020-02-19 13:35] VITALS: BP 94/62
[2020-02-19 14:10] LABS: BASO % 0.3 % (0.0-1.0); EOS # 0.1 10*3/uL (0.0-0.4); EOS % 0.6 % (1.0-4.0); HEMATOCRIT 36.2 % (37.0-47.0); LYMPH # 2.6 10*3/uL (1.3-4.4); LYMPH % 19.8 % (27.0-41.0); MEAN CELL VOLUME 94.5 fl (81.0-99.0); MEAN CORPUSCULAR HGB 28.7 pg (27.0-31.0); MEAN CORPUSCULAR HGB CONC 30.4 g/dl (33.0-37.0); MEAN PLATELET VOLUME 9.7 fl (9.6-12.3); MONO # 1.5 10*3/uL (0.1-1.0); MONO % 11.3 % (3.0-9.0); NEUT % 67.5 % (47.0-73.0); PLATELET COUNT AUTOMATED 272 10*3/uL (130-400); RED BLOOD COUNT 3.83 10*6/uL (4.10-5.10); RED CELL DISTRI WIDTH 14.1 % (0-14.5); WHITE BLOOD COUNT 13.3 10*3/uL (4.8-10.8)
[2020-02-19 14:24] LABS: ALBUMIN 3.3 gm/dl (3.1-4.5); CREATININE 1.21 mg/dL (0.55-1.02); POTASSIUM 3.9 mmol/L (3.5-5.1); TOTAL PROTEIN 7.4 gm/dL (6.4-8.2)
[2020-02-19 14:30] VITALS: BP 102/60
[2020-02-19 15:20] VITALS: BP 104/68
[2020-02-19 20:00] VITALS: BP 112/69
[2020-02-20] VITALS: BP 114/69
[2020-02-20 07:53] LABS: BASO # 0.1 10*3/uL (0.0-0.1); BASO % 0.4 % (0.0-1.0); EOS # 0.2 10*3/uL (0.0-0.4); EOS % 1.3 % (1.0-4.0); HEMATOCRIT 34.7 % (37.0-47.0); LYMPH % 17.4 % (27.0-41.0); MEAN CORPUSCULAR HGB 28.7 pg (27.0-31.0); MEAN CORPUSCULAR HGB CONC 30.5 g/dl (33.0-37.0); MEAN PLATELET VOLUME 10.9 fl (9.6-12.3); MONO # 1.1 10*3/uL (0.1-1.0); MONO % 9.6 % (3.0-9.0); NEUT # 8.2 10*3/uL (2.3-7.9); PLATELET COUNT AUTOMATED 253 10*3/uL (130-400); RED BLOOD COUNT 3.69 10*6/uL (4.10-5.10); RED CELL DISTRI WIDTH 13.8 % (0-14.5); WHITE BLOOD COUNT 11.6 10*3/uL (4.8-10.8)
[2020-02-20 08:00] VITALS: BP 117/71; BP 139/60
[2020-02-20 08:08] LABS: BUN 19 mg/dl (7-24); CHLORIDE 107 mmol/L (98-107); CREATININE 0.79 mg/dL (0.55-1.02); POTASSIUM 3.9 mmol/L (3.5-5.1); SODIUM 141 mmol/L (136-145)
[2020-02-20] MEDS ORDERED: HYDROCODONE-AC1 EAC1 PO (14:15)
== END 2020-02-20 16:17 | disposition home or self-care (01) ==
LOC: SDC 02:25 → 5E 07:08 → SDC 07:30 → 5E 02-20 16:17
PROVIDERS: Family Medicine; Orthopaedic Surgery; Student in an Organized Health Care Education/Training Program; ADMIT Internal Medicine; ATTEND Internal Medicine
DX: M17.12 Unilateral primary osteoarthritis, left knee (principal); F41.9 Anxiety disorder, unspecified; I48.91 Unspecified atrial fibrillation; E78.5 Hyperlipidemia, unspecified; F32.9 Major depressive disorder, single episode, unspecified; E55.9 Vitamin D deficiency, unspecified; I10 Essential (primary) hypertension

== ENCOUNTER → 2020-03-03 | Outpatient (CLI) | payer MEDICARE, MEDICAID ==
[~2020-03-03] MED LIST changes: +HYDROCODONE-AC1 EAC1 PO
== END | disposition home or self-care (01) ==
LOC: ORTHO 00:23
PROVIDERS: ATTEND Orthopaedic Surgery
DX: Z96.652 Presence of left artificial knee joint (principal)

== ENCOUNTER → 2020-03-12 | Outpatient (CLI) | payer MEDICARE, MEDICAID | END | disposition home or self-care (01) | LOC: RAD 09:09 | PROVIDERS: ATTEND Orthopaedic Surgery | DX: Z47.1 Aftercare following joint replacement surgery (principal); M25.462 Effusion, left knee ==